=== PATIENT | male | born 1980 | race Caucasian/White ===

== ENCOUNTER 2017-04-24 11:02 | Inpatient (IN) | payer OTHER ==
[2017-04-24] MEDS ORDERED: ACETAMINOPHEN TAB 500 MG TAB PO STA (12:01)
[2017-04-24] MEDS ORDERED: MORPHINE SULFATE 4 MG/ML SYRINGE IVP STA (12:02)
[2017-04-24] MEDS ORDERED: ONDANSETRON 4 MG/2 ML VIAL IVP STA (12:06)
[2017-04-24 12:09] LABS: Glucose,Whole Blood 305 mg/dL (75-99)
--- NOTE | 2017-04-24 12:12 | ED ---
Lower Extremity Injury HPI <David Jackson - Last Filed: 04/24/17 13:15> - General Source: patient, RN notes reviewed Mode of arrival: wheelchair Limitations: no limitations <Alyson Morton - Last Filed: 04/24/17 16:21> - General Chief Complaint: Extremity Injury, Lower Stated Complaint: foot infection Time Seen by Provider: 04/24/17 11:35 - History of Present Illness Initial Comments: Patient is a 36-year-old male presents to the emergency room for evaluation of left toe swelling, pain and infection. Patient states that he noticed a small blister on the side of his toe about a year ago. Patient states over the past few days gotten worse. Patient states he was sent home 3 days ago for what he thought was heat exhaustion. Patient states today his left toe began bothering him more. Patient states having extreme swelling and draining from his left great toe. Patient denies any specific injury to his toe. Patient states he hasn't been to the doctor's in years. Patient states that he's been having on and off fevers past few days. Patient states he took Tylenol last night. Patient states he's been nauseous. Patient denies vomiting. Patient denies headache or dizziness. Patient states he is having 10 out of 10 pain in his left great toe. Patient denies history of diabetes or any other medical issues. Patient denies chest pain or shortness of breath. (Alyson Morton) - Related Data Home Medications Medication Instructions Recorded Confirmed Acetaminophen Tab [Tylenol Tab] 1,000 mg PO Q6HR PRN 04/24/17 04/24/17 Allergies Allergy/AdvReac Type Severity Reaction Status Date / Time No Known Allergies Allergy Verified 04/24/17 11:42 Review of Systems ROS Other: All systems not noted in ROS Statement are negative. <David Jackson - Last Filed: 04/24/17 13:15> ROS Other: All systems not noted in ROS Statement are negative. <Alyson Morton - Last Filed: 04/24/17 16:21> ROS Statement: Those systems with pertinent positive or pertinent negative responses have been documented in the HPI. Past Medical History Past Medical History: No Reported History History of Any Multi-Drug Resistant Organisms: None Reported Past Surgical History: No Surgical Hx Reported Past Psychological History: No Psychological Hx Reported Smoking Status: Never smoker Past Alcohol Use History: None Reported Past Drug Use History: None Reported - Past Family History Father Family Medical History: No Reported History Additional Family Medical History / Comment(s): Father does not go to the doctor. Mother Family Medical History: Diabetes Mellitus Additional Family Medical History / Comment(s): Diabetes runs on the mother's side. <Alyson Morton - Last Filed: 04/24/17 16:21> General Exam <David Jackson - Last Filed: 04/24/17 13:15> Limitations: no limitations General appearance: alert, in no apparent distress Head exam: Present: atraumatic, normocephalic, normal inspection Eye exam: Present: normal appearance ENT exam: Present: normal exam Neck exam: Present: normal inspection Respiratory exam: Present: normal lung sounds bilaterally. Absent: respiratory distress Cardiovascular Exam: Present: normal rhythm, tachycardia, normal heart sounds Left Foot/Toe exam: Present: full ROM, tenderness, erythema (Erythema and edema radiating from the left great toe onto the dorsal portion of the foot). Absent : normal inspection (Edematous left great toe, with drainage, blistering and a necrotic lesion on lateral portion of great toe) Neurovascular tendon exam: Absent: pulse deficit (2+ dorsal pedal pulses) Back exam: Present: normal inspection Neurological exam: Present: alert, oriented X3 Psychiatric exam: Present: normal affect, normal mood Skin exam: Present: warm, dry <Alyson Morton - Last Filed: 04/24/17 16:21> - General Exam Comments Initial Comments: Sitting in exam room, no distress. (Alyson Morton) Medical Decision Making - Lab Data Result diagrams: 04/24/17 12:01 04/24/17 12:01 <David Jackson - Last Filed: 04/24/17 13:15> - Lab Data Result diagrams: 04/24/17 12:01 04/24/17 12:01 - Radiology Data Radiology results: report reviewed, image reviewed <Alyson Morton - Last Filed: 04/24/17 16:21> - Medical Decision Making patient is a 36-year-old male since emergency room for evaluation of left great toe infection. There is gas formation noted on the x-ray of the foot. Elevated WBC. Case discussed with Dr. Jackson who also evaluated patient. Dr. Jackson discussed case with Dr. Martin who agreed to admit patient. Patient be consult with infectious disease and Ortho. Patient started on Vanco on Unasyn. (Alyson Morton) - Lab Data Lab Results 04/24/17 04/24/17 04/24/17 Range/Units 12:01 12:01 12:01 WBC 10.7 H (3.8-10.6) k/uL RBC 4.53 (4.30-5.90) m/uL Hgb 13.6 (13.0-17.5) gm/dL Hct 37.7 L (39.0-53.0) % MCV 83.3 (80.0-100.0) fL MCH 30.1 (25.0-35.0) pg MCHC 36.2 (31.0-37.0) g/dL RDW 12.5 (11.5-15.5) % Plt Count 234 (150-450) k/uL Neutrophils % 82 % Lymphocytes % 9 % Monocytes % 7 % Eosinophils % 0 % Basophils % 0 % Neutrophils # 8.8 H (1.3-7.7) k/uL Lymphocytes # 0.9 L (1.0-4.8) k/uL Monocytes # 0.7 (0-1.0) k/uL Eosinophils # 0.0 (0-0.7) k/uL Basophils # 0.0 (0-0.2) k/uL PT (9.0-12.0) sec INR (<1.1) APTT (22.0-30.0) sec Sodium 134 L (137-145) mmol/L Potassium 4.4 (3.5-5.1) mmol/L Chloride 97 L (98-107) mmol/L Carbon Dioxide 19 L (22-30) mmol/L Anion Gap 18 mmol/L BUN 15 (9-20) mg/dL Creatinine 0.70 (0.66-1.25) mg/dL Est GFR (MDRD) Af Amer >60 (>60 ml/min/1.73 sqM) Est GFR (MDRD) Non-Af >60 (>60 ml/min/1.73 sqM) Glucose 299 H (74-99) mg/dL POC Glucose (mg/dL) (75-99) mg/dL POC Glu Head Shipper ID Plasma Lactic Acid [place] 1.4 (0.7-2.0) mmol/L Calcium 9.0 (8.4-10.2) mg/dL Total Bilirubin 1.7 H (0.2-1.3) mg/dL AST 15 L (17-59) U/L ALT 39 (21-72) U/L Alkaline Phosphatase 81 (38-126) U/L Total Protein 7.1 (6.3-8.2) g/dL Albumin 3.8 (3.5-5.0) g/dL Urine Color Urine Appearance (Clear) Urine pH (5.0-8.0) Ur Specific [place] (1.001-1.035) Urine Protein (Negative) Urine Glucose (UA) (Negative) Urine Ketones (Negative) Urine Blood (Negative) Urine Nitrite (Negative) Urine Bilirubin (Negative) Urine Urobilinogen (<2.0) mg/dL Ur Leukocyte Esterase (Negative) Urine RBC (0-5) /hpf Urine WBC (0-5) /hpf Urine Mucus (None) /hpf 04/24/17 04/24/17 04/24/17 Range/Units 12:01 12:08 12:35 WBC (3.8-10.6) k/uL RBC (4.30-5.90) m/uL Hgb (13.0-17.5) gm/dL Hct (39.0-53.0) % MCV (80.0-100.0) fL MCH (25.0-35.0) pg MCHC (31.0-37.0) g/dL RDW (11.5-15.5) % Plt Count (150-450) k/uL Neutrophils % % Lymphocytes % % Monocytes % % Eosinophils % % Basophils % % Neutrophils # (1.3-7.7) k/uL Lymphocytes # (1.0-4.8) k/uL Monocytes # (0-1.0) k/uL Eosinophils # (0-0.7) k/uL Basophils # (0-0.2) k/uL PT 11.3 (9.0-12.0) sec INR 1.1 (<1.1) APTT 24.9 (22.0-30.0) sec Sodium (137-145) mmol/L Potassium (3.5-5.1) mmol/L Chloride (98-107) mmol/L Carbon Dioxide (22-30) mmol/L Anion Gap mmol/L BUN (9-20) mg/dL Creatinine (0.66-1.25) mg/dL Est GFR (MDRD) Af Amer (>60 ml/min/1.73 sqM) Est GFR (MDRD) Non-Af (>60 ml/min/1.73 sqM) Glucose (74-99) mg/dL POC Glucose (mg/dL) 305 H (75-99) mg/dL POC Glu Head Shipper ID Gladis Rao Plasma Lactic Acid [place] (0.7-2.0) mmol/L Calcium (8.4-10.2) mg/dL Total Bilirubin (0.2-1.3) mg/dL AST (17-59) U/L ALT (21-72) U/L Alkaline Phosphatase (38-126) U/L Total Protein (6.3-8.2) g/dL Albumin (3.5-5.0) g/dL Urine Color Yellow Urine Appearance Clear (Clear) Urine pH 5.0 (5.0-8.0) Ur Specific [place] 1.027 (1.001-1.035) Urine Protein 1+ H (Negative) Urine Glucose (UA) 4+ H (Negative) Urine Ketones 4+ H (Negative) Urine Blood Moderate H (Negative) Urine Nitrite Negative (Negative) Urine Bilirubin Negative (Negative) Urine Urobilinogen <2.0 (<2.0) mg/dL Ur Leukocyte Esterase Negative (Negative) Urine RBC 1 (0-5) /hpf Urine WBC 1 (0-5) /hpf Urine Mucus Rare H (None) /hpf Disposition <Dvaid Jackson - Last Filed: 04/24/17 13:15> Decision Date: 04/24/17 <Alyson Morton - Last Filed: 04/24/17 16:21> Clinical Impression: Infection of toe, New onset type 2 diabetes mellitus Disposition: ADMITTED IP TO THIS [facility] Condition: Stable
[2017-04-24 12:27] LABS: Basophils % (A) 0 %; CH 29.1; Eosinophils % (A) 0 %; HCT 37.7 % (39.0-53.0); HDW 3.11; HGB 13.6 gm/dL (13.0-17.5); Luc # (Auto) 0.26; Luc % (Auto) 2; Lymphocytes # (A) 0.9 k/uL (1.0-4.8); Lymphocytes % (A) 9 %; MCH 30.1 pg (25.0-35.0); MCHC 36.2 g/dL (31.0-37.0); MCV 83.3 fL (80.0-100.0); Mean Platelet Volume 7.3; Monocytes # (A) 0.7 k/uL (0-1.0); Monocytes % (A) 7 %; Neutrophils # (A) 8.8 k/uL (1.3-7.7); Neutrophils % (A) 82 %; RBC 4.53 m/uL (4.30-5.90); RDW 12.5 % (11.5-15.5); WBC 10.7 k/uL (3.8-10.6); WBC (Perox) 10.45
[2017-04-24 12:35] LABS: ALT 39 U/L (21-72); AST 15 U/L (17-59); Alkaline Phosphatase 81 U/L (38-126); Anion Gap 18 mmol/L; Blood Urea Nitrogen 15 mg/dL (9-20); Carbon Dioxide 19 mmol/L (22-30); Chloride 97 mmol/L (98-107); Glucose 299 mg/dL (74-99); Non-African American GFR(MDRD) >60 (>60 ml/min/1.73 sqM); Potassium 4.4 mmol/L (3.5-5.1); Sodium 134 mmol/L (137-145); Total Bilirubin 1.7 mg/dL (0.2-1.3); Total Protein 7.1 g/dL (6.3-8.2)
[2017-04-24 12:39] LABS: INR 1.1 (<1.1); Prothrombin Time 11.3 sec (9.0-12.0)
[2017-04-24] MEDS: SODIUM CHLORIDE 0.9% 500 ML IV SCH ×3 (12:43→15:02)
[2017-04-24] MEDS ORDERED: IV VANCOMYCIN PER PHARMACY 1 EACH MISC MISCELLANE PRN (12:51)
[2017-04-24] MEDS ORDERED: AMPICILLIN-SULBACTAM 3 GM in SODIUM CHLORIDE 0.9% 100 ML IVPB STA (12:52)
[2017-04-24] MEDS ORDERED: VANCOMYCIN 2,500 MG in SODIUM CHLORIDE 0.9% 500 ML IVPB STA (12:55)
[2017-04-24 12:56] LABS: Partial Thromboplastin Time 24.9 sec (22.0-30.0)
--- NOTE | 2017-04-24 12:58 | XR ---
EXAMINATION TYPE: XR foot complete LT DATE OF EXAM: 04/24/2017 COMPARISON: NONE HISTORY: 36-year-old male pain and swelling, great toe infection. TECHNIQUE: 3 views FINDINGS: Marked soft tissue swelling of the great toe. There is soft tissue gas present within the great toe e xtending to the first metatarsal head level. No underlying osseous erosions. No acute fracture, sublu xation, or dislocation identified. IMPRESSION: Marked soft tissue swelling as well as soft tissue gas within the great toe. Air bubbles extend to th e level of the first metatarsal head. Findings suggest severe infection with gas-forming organism. No underlying acute osseous abnormality seen.
[2017-04-24 13:05] LABS: Appearance,Urine Clear (Clear); Bilirubin,Urine Negative (Negative); Glucose,Urine (UA) 4+ (Negative); Leukocyte Esterase,Urine Negative (Negative); Mucus,Urine Rare /hpf; Nitrite,Urine Negative (Negative); Particle Count 2079; Protein,Urine 1+ (Negative); RBC,Urine 1 /hpf (0-5); Specific Gravity,Urine 1.027 (1.001-1.035); UA Billing (MACRO vs. MICRO) MICRO; Urobilinogen,Urine <2.0 mg/dL (<2.0); WBC,Urine 1 /hpf (0-5)
[2017-04-24] MEDS ORDERED: IBUPROFEN 400 MG TAB PO PRN (13:14)
[2017-04-24] MEDS ORDERED: NALOXONE 0.4 MG/ML 1 ML VIAL IV PRN (13:14)
[2017-04-24] MEDS ORDERED: HYDROcodone/APAP 5-325MG 1 EACH TAB PO PRN (13:14)
[2017-04-24] MEDS ORDERED: KETOROLAC 30 MG/ML 1 ML VIAL IVP PRN (13:14)
[2017-04-24] MEDS ORDERED: ACETAMINOPHEN TAB 500 MG TAB PO PRN (13:14)
[2017-04-24 13:34] LABS: Ketones,Urine 4+ (Negative)
[2017-04-24] MEDS: SODIUM CHLORIDE 0.9% 1,000 ML IV SCH ×2 (15:00→15:01)
--- NOTE | 2017-04-24 16:18 | P.CNOR ---
History of Present Illness - HPI Consult date: 04/24/17 History of present illness: This is a pleasant 36-year-old male admitted for cellulitis of the left great toe and new onset diabetes. Patient states he has noticed a blister to the left great toe for over a year. Patient attributes this to his work boots. Patient has not noticed any pain associated with the blister. Patient states since Thursday he has been feeling feverish and weak. Patient states he had a measured fever of approximately 101 yesterday. Patient states he started noticing increasing erythema and swelling to the left great toe over the last few days. Patient states he has tried popping the blister himself with a needle. Patient states he always has decreased sensation to the left great toe. Patient states he was unaware that he was diabetic. Patient has been able to ambulate. Patient denies any history of MRSA. Patient also admits to decreased appetite over the last day. Patient denies any abdominal pain, nausea /vomiting, headache or pain. Review of Systems See HPI. Past Medical History Past Medical History: No Reported History History of Any Multi-Drug Resistant Organisms: None Reported Past Surgical History: No Surgical Hx Reported Additional Past Anesthesia/Blood Transfusion Reaction / Comm: Pt has never had surgery. Smoking Status: Former smoker - Past Family History Father Family Medical History: No Reported History Additional Family Medical History / Comment(s): Father does not go to the doctor. Mother Family Medical History: Diabetes Mellitus Additional Family Medical History / Comment(s): Diabetes runs on the mother's side. Medications and Allergies Home Medications Medication Instructions Recorded Confirmed Type Acetaminophen Tab [Tylenol Tab] 1,000 mg PO Q6HR PRN 04/24/17 04/24/17 History Allergies Allergy/AdvReac Type Severity Reaction Status Date / Time No Known Allergies Allergy Verified 04/24/17 11:42 Physical Examination On inspection there is significant swelling to the left great toe and left foot. There are 2 areas of necrotic tissue to the anteromedial and posterior medial aspects of the left great toe in multiple areas with blistering and drainage. There is skin breakdown in the webspace between the first and second toes. There is surrounding erythema extending to the mid foot. There is no tenderness to palpation. Patient has significantly decreased sensation to the left great toe especially when compared with the second through fifth toes. The tip of the left great toe blanches. Dorsalis pedis pulses 2+. Patient is able to move the toes of the left foot. Patient has full ankle motion. Results X-rays are reviewed showing gas formation in the soft tissue of the left great toe. No apparent fracture or dislocation. - Labs Labs: Abnormal Lab Results - Last 24 Hours (Table) 04/24/17 04/24/17 04/24/17 Range/Units 12:01 12:01 12:08 WBC 10.7 H (3.8-10.6) k/uL Hct 37.7 L (39.0-53.0) % Neutrophils # 8.8 H (1.3-7.7) k/uL Lymphocytes # 0.9 L (1.0-4.8) k/uL Sodium 134 L (137-145) mmol/L Chloride 97 L (98-107) mmol/L Carbon Dioxide 19 L (22-30) mmol/L Glucose 299 H (74-99) mg/dL POC Glucose (mg/dL) 305 H (75-99) mg/dL Total Bilirubin 1.7 H (0.2-1.3) mg/dL AST 15 L (17-59) U/L Urine Protein (Negative) Urine Glucose (UA) (Negative) Urine Ketones (Negative) Urine Blood (Negative) Urine Mucus (None) /hpf 04/24/17 Range/Units 12:35 WBC (3.8-10.6) k/uL Hct (39.0-53.0) % Neutrophils # (1.3-7.7) k/uL Lymphocytes # (1.0-4.8) k/uL Sodium (137-145) mmol/L Chloride (98-107) mmol/L Carbon Dioxide (22-30) mmol/L Glucose (74-99) mg/dL POC Glucose (mg/dL) (75-99) mg/dL Total Bilirubin (0.2-1.3) mg/dL AST (17-59) U/L Urine Protein 1+ H (Negative) Urine Glucose (UA) 4+ H (Negative) Urine Ketones 4+ H (Negative) Urine Blood Moderate H (Negative) Urine Mucus Rare H (None) /hpf H & H 04/24/17 Range/Units 12:01 Hgb 13.6 (13.0-17.5) gm/dL Hct 37.7 L (39.0-53.0) % Coagulation 04/24/17 Range/Units 12:01 INR 1.1 (<1.1) Result Diagrams: 04/24/17 12:01 04/24/17 12:01 Assessment and Plan (1) Cellulitis Status: Acute (2) Infection of toe Status: Acute Plan: #1. Consult to vascular regarding possible amputation. #2. Continue IV antibiotics per infectious disease. #3. Further recommendations pending vascular consultation. #4. Will follow the patient closely.
[2017-04-24 17:03] LABS: Glucose,Whole Blood 247 mg/dL (75-99)
--- NOTE | 2017-04-24 18:03 | CONS ---
DATE OF CONSULTATION: 04/24/2017 REASON FOR CONSULTATION: Left big toe infection. HISTORY OF PRESENT ILLNESS: The patient is a 36 year old male who apparently did have a blister on the plantar aspect of his left big toe for more than a year now where the patient had ( ) at home. However, the last few days, the patient started having more swelling and redness of his big toe. The patient did have significant ( ) in his toes, so denies significant pain. They did become more swollen and started draining from his left great toe with no history of any trauma. The patient apparently did have a fever at home of 101 degrees with 100.8 on presentation to the ER. The patient did have elevated white count 10.7 and his sugar was elevated at 299 and the patient did not know that he was diabetic. The patient did have x-rays of his foot which is suggestive of a mild soft tissue swelling as well as soft tissue ( ) within the great toe, air bubble extending to the level of the first metatarsal head, ( ) suggests severe infection with ( ) organism. The patient has been started on Vancomycin and ID was consulted for further recommendations regarding antibiotic therapy. REVIEW OF SYSTEMS Constitutional: Positive for weakness along with fever. EYES: No complaint. ENT: No complaint. Respiratory: No complaint. Cardiovascular: No complaint. Genitourinary: No complaint. Gastrointestinal: No complaint. Musculoskeletal: As per HPI. Integumentary: As per HPI. Psychological: No complaint. Endocrine: No complaint. Neurological: No complaint. Past medical history significant for no major illness. Past surgical history: No major surgeries. SOCIAL HISTORY: No history of smoking, drinking or drug use. FAMILY HISTORY: No pertinent findings were noticed. ALLERGIES: No known drug allergies. Medications currently include the patient is on: 1. Tylenol. 2. [place]. 3. Motrin. 4. Humalog. 5. Toradol. 6. Morphine sulfate. 7. Narcan. 8. Zofran. 9. Vancomycin. On examination, blood pressure is 121/56 with a pulse of 100. Temperature 97.8. T-Max is 101. He is 96% on room air. General description is a middle aged male lying in bed in no distress. No tachypnea or accessory muscles of respiration use. HEENT: Examination shows no pallor or scleral icterus. Oral mucous membranes moist. NECK: Trachea is central. No thyromegaly. LUNGS: Unlabored breathing. Clear to auscultation anteriorly. No wheeze or crackles. HEART: S1, S2 regular rate and rhythm. ABDOMEN: Soft, no tenderness. No guarding or rigidity. EXTREMITIES: No edema of the feet. Examination of the left foot the big toe is significantly swollen and red. No blackish discoloration was noticed. There is some drainage. NEUROLOGICALLY: The patient is awake, alert and oriented times three. Mood and affect normal. LABS: Hemoglobin 13.6, white count 10.7 with a BUN 15, creatinine 0.70. The patient did have blood cultures obtained which are currently pending. DIAGNOSTIC IMPRESSION AND PLAN: Patient with sepsis in a patient who did have fever of 101 degrees and did have tachycardia with slightly elevated white count , ( ) diabetic foot infection in a patient with elevated blood sugar likely newly diagnosed diabetes, the patient was unaware with evidence of ( ) pathogen and the likely polymicrobial infection including both gram positive and gram negative. PLAN: 1. Vancomycin will be continued. Will add Zosyn 3.375 gm IV piggyback every eight hours. 2. Await surgical debridement for which both vascular surgery and Ortho on the case. 3. Depending on his clinical condition as well as cultures, we will adjust the antibiotics further. Thank you for this consultation. We will follow this patient along with you. Family was present at the bedside. All their questions were answered. KINSEY
[2017-04-24] MEDS: PIPERACILLIN-TAZOBACTAM 3.375 GM in DEXTROSE/WATER 1 50ML.BAG IVPB SCH (18:09)
[2017-04-24] MEDS: INSULIN LISPRO (humaLOG) 300 UNIT/3 ML VIAL SQ SCH ×2 (18:09→22:02)
[2017-04-24 20:51] LABS: Glucose,Whole Blood 282 mg/dL (75-99)
[2017-04-24 21:47] LABS: Hemoglobin A1C 13.8 % (4.2-6.1)
[2017-04-24] MEDS: VANCOMYCIN 2,250 MG in SODIUM CHLORIDE 0.9% 500 ML IVPB SCH (23:25)
[2017-04-25] MEDS: PIPERACILLIN-TAZOBACTAM 3.375 GM in DEXTROSE/WATER 1 50ML.BAG IVPB SCH ×3 (02:53→17:51)
[2017-04-25 07:18] LABS: Glucose,Whole Blood 276 mg/dL (75-99)
[2017-04-25] MEDS: ENOXAPARIN 40 MG/0.4 ML SYRINGE SQ SCH (07:28)
[2017-04-25] MEDS: VANCOMYCIN 2,250 MG in SODIUM CHLORIDE 0.9% 500 ML IVPB SCH ×3 (07:32→22:41)
--- NOTE | 2017-04-25 07:33 | P.GSCN ---
History of Present Illness History of present illness: 36 and fell, patient came to the [facility] with history of left big toe blister formation or cellulitis patient has developed wet gangrene in the left big toe seen by the orthopedic and also by the infectious disease there is a skin necrosis noted on the dorsal aspect of the left big toe there is an open wound on the plantar aspect of the left big toe with draining pus there is marked redness and swelling noted of the left foot and dorsal aspect of the foot and IV antibiotic also has a low-grade fever option were discussed with the patient because of the skin necrosis on the dorsal suspect the foot and to the large open wound ulcer on the plantar aspect the foot patient needs left big toe amputation Medical history history of diabetes no history of hypertension coronary artery disease Personal history no known ALLERGIES Neck examination neck is supple no bruit appreciated Chest clear first and second sound normal Abdomen soft nontender Vascular examination brachial radial and femoral pulses are present dorsal pedis is palpable patient has a left big toe and wet gangrene Plan is amputation of the left big toe wound healing nontender infection has been discussed with the patient they understand Past Medical History Past Medical History: No Reported History History of Any Multi-Drug Resistant Organisms: None Reported Past Surgical History: No Surgical Hx Reported Additional Past Anesthesia/Blood Transfusion Reaction / Comm: Pt has never had surgery. Past Psychological History: No Psychological Hx Reported Smoking Status: Never smoker Past Alcohol Use History: None Reported Past Drug Use History: None Reported - Past Family History Father Family Medical History: No Reported History Additional Family Medical History / Comment(s): Father does not go to the doctor. Mother Family Medical History: Diabetes Mellitus Additional Family Medical History / Comment(s): Diabetes runs on the mother's side. Medications and Allergies Home Medications Medication Instructions Recorded Confirmed Type Acetaminophen Tab [Tylenol Tab] 1,000 mg PO Q6HR PRN 04/24/17 04/24/17 History Allergies Allergy/AdvReac Type Severity Reaction Status Date / Time No Known Allergies Allergy Verified 04/24/17 11:42 Surgical - Exam Vital Signs Temp Pulse Resp BP Pulse Ox 100.8 F H 115 H 18 126/74 98 04/24/17 11:16 04/24/17 11:16 04/24/17 11:16 04/24/17 11:16 04/24/17 11:16 Results - Labs 04/24/17 12:01 04/24/17 12:01 Abnormal Lab Results - Last 24 Hours (Table) 04/24/17 04/24/17 04/24/17 Range/Units 12:01 12:01 12:01 WBC 10.7 H (3.8-10.6) k/uL Hct 37.7 L (39.0-53.0) % Neutrophils # 8.8 H (1.3-7.7) k/uL Lymphocytes # 0.9 L (1.0-4.8) k/uL Sodium 134 L (137-145) mmol/L Chloride 97 L (98-107) mmol/L Carbon Dioxide 19 L (22-30) mmol/L Glucose 299 H (74-99) mg/dL POC Glucose (mg/dL) (75-99) mg/dL Hemoglobin A1c 13.8 H (4.2-6.1) % Total Bilirubin 1.7 H (0.2-1.3) mg/dL AST 15 L (17-59) U/L Urine Protein (Negative) Urine Glucose (UA) (Negative) Urine Ketones (Negative) Urine Blood (Negative) Urine Mucus (None) /hpf 04/24/17 04/24/17 04/24/17 Range/Units 12:08 12:35 16:59 WBC (3.8-10.6) k/uL Hct (39.0-53.0) % Neutrophils # (1.3-7.7) k/uL Lymphocytes # (1.0-4.8) k/uL Sodium (137-145) mmol/L Chloride (98-107) mmol/L Carbon Dioxide (22-30) mmol/L Glucose (74-99) mg/dL POC Glucose (mg/dL) 305 H 247 H (75-99) mg/dL Hemoglobin A1c (4.2-6.1) % Total Bilirubin (0.2-1.3) mg/dL AST (17-59) U/L Urine Protein 1+ H (Negative) Urine Glucose (UA) 4+ H (Negative) Urine Ketones 4+ H (Negative) Urine Blood Moderate H (Negative) Urine Mucus Rare H (None) /hpf 04/24/17 04/25/17 Range/Units 20:48 07:15 WBC (3.8-10.6) k/uL Hct (39.0-53.0) % Neutrophils # (1.3-7.7) k/uL Lymphocytes # (1.0-4.8) k/uL Sodium (137-145) mmol/L Chloride (98-107) mmol/L Carbon Dioxide (22-30) mmol/L Glucose (74-99) mg/dL POC Glucose (mg/dL) 282 H 276 H (75-99) mg/dL Hemoglobin A1c (4.2-6.1) % Total Bilirubin (0.2-1.3) mg/dL AST (17-59) U/L Urine Protein (Negative) Urine Glucose (UA) (Negative) Urine Ketones (Negative) Urine Blood (Negative) Urine Mucus (None) /hpf Microbiology - Last 24 Hours (Table) 04/24/17 12:10 Gram Stain - Preliminary Toe - Right First Wound Culture - Preliminary 04/24/17 12:35 Urine Culture - Preliminary Urine,Voided Diabetes panel 04/24/17 04/24/17 Range/Units 12:01 12:01 Sodium 134 L (137-145) mmol/L Potassium 4.4 (3.5-5.1) mmol/L Chloride 97 L (98-107) mmol/L Carbon Dioxide 19 L (22-30) mmol/L BUN 15 (9-20) mg/dL Creatinine 0.70 (0.66-1.25) mg/dL Glucose 299 H (74-99) mg/dL Hemoglobin A1c 13.8 H (4.2-6.1) % Calcium 9.0 (8.4-10.2) mg/dL AST 15 L (17-59) U/L ALT 39 (21-72) U/L Alkaline Phosphatase 81 (38-126) U/L Total Protein 7.1 (6.3-8.2) g/dL Albumin 3.8 (3.5-5.0) g/dL Calcium panel 04/24/17 Range/Units 12:01 Calcium 9.0 (8.4-10.2) mg/dL Albumin 3.8 (3.5-5.0) g/dL Pituitary panel 04/24/17 Range/Units 12:01 Sodium 134 L (137-145) mmol/L Potassium 4.4 (3.5-5.1) mmol/L Chloride 97 L (98-107) mmol/L Carbon Dioxide 19 L (22-30) mmol/L BUN 15 (9-20) mg/dL Creatinine 0.70 (0.66-1.25) mg/dL Glucose 299 H (74-99) mg/dL Calcium 9.0 (8.4-10.2) mg/dL Adrenal panel 04/24/17 Range/Units 12:01 Sodium 134 L (137-145) mmol/L Potassium 4.4 (3.5-5.1) mmol/L Chloride 97 L (98-107) mmol/L Carbon Dioxide 19 L (22-30) mmol/L BUN 15 (9-20) mg/dL Creatinine 0.70 (0.66-1.25) mg/dL Glucose 299 H (74-99) mg/dL Calcium 9.0 (8.4-10.2) mg/dL Total Bilirubin 1.7 H (0.2-1.3) mg/dL AST 15 L (17-59) U/L ALT 39 (21-72) U/L Alkaline Phosphatase 81 (38-126) U/L Total Protein 7.1 (6.3-8.2) g/dL Albumin 3.8 (3.5-5.0) g/dL
[2017-04-25 08:40] LABS: Basophils % (A) 0 %; CH 28.8; CHCM 33.7; Eosinophils # (A) 0.1 k/uL (0-0.7); Eosinophils % (A) 1 %; HCT 36.6 % (39.0-53.0); HDW 3.06; HGB 12.2 gm/dL (13.0-17.5); Luc # (Auto) 0.41; Luc % (Auto) 4; Lymphocytes # (A) 1.5 k/uL (1.0-4.8); Lymphocytes % (A) 14 %; MCH 28.5 pg (25.0-35.0); MCHC 33.2 g/dL (31.0-37.0); MCV 85.8 fL (80.0-100.0); Mean Platelet Volume 7.1; Monocytes # (A) 0.6 k/uL (0-1.0); Monocytes % (A) 6 %; Neutrophils # (A) 7.9 k/uL (1.3-7.7); Neutrophils % (A) 75 %; RBC 4.27 m/uL (4.30-5.90); RDW 12.6 % (11.5-15.5); WBC 10.5 k/uL (3.8-10.6); WBC (Perox) 10.62
[2017-04-25 08:47] LABS: ALT 29 U/L (21-72); AST 17 U/L (17-59); Alkaline Phosphatase 79 U/L (38-126); Anion Gap 13 mmol/L; Blood Urea Nitrogen 14 mg/dL (9-20); Calcium 8.3 mg/dL (8.4-10.2); Carbon Dioxide 23 mmol/L (22-30); Chloride 100 mmol/L (98-107); Glucose 262 mg/dL (74-99); Non-African American GFR(MDRD) >60 (>60 ml/min/1.73 sqM); Potassium 4.4 mmol/L (3.5-5.1); Sodium 136 mmol/L (137-145); Total Bilirubin 1.5 mg/dL (0.2-1.3); Total Protein 6.4 g/dL (6.3-8.2)
[2017-04-25] MEDS: INSULIN LISPRO (humaLOG) 300 UNIT/3 ML VIAL SQ SCH ×4 (08:51→21:10)
[2017-04-25 09:52] VITALS: BMI 38.0
[2017-04-25] MEDS: SODIUM CHLORIDE 0.9% 1,000 ML IV SCH ×2 (10:35→20:27)
[2017-04-25 11:45] LABS: Glucose,Whole Blood 242 mg/dL (75-99)
[2017-04-25] MEDS ORDERED: IV FLUID CONTINUATION 1,000 ML IV ONE (11:52)
[2017-04-25] MEDS ORDERED: KETOROLAC 30 MG/ML 1 ML VIAL ONE (12:36)
[2017-04-25] MEDS ORDERED: PROPOFOL 10 MG/ML 20 ML VIAL IV ONE (12:36)
[2017-04-25] MEDS ORDERED: fentaNYL (PF) 50 MCG/ML 2 ML AMP ONE (12:36)
[2017-04-25] MEDS ORDERED: MIDAZOLAM 2 MG/2 ML VIAL ONE (12:36)
[2017-04-25] MEDS ORDERED: ONDANSETRON 4 MG/2 ML VIAL ONE (12:36)
[2017-04-25] MEDS ORDERED: LIDOCAINE 1% INJ 10MG/ML (20 ML MDV) ONE (12:36)
[2017-04-25] MEDS ORDERED: METOCLOPRAMIDE 5 MG/ML 2 ML VIAL IVP PRN (12:56)
[2017-04-25] MEDS ORDERED: HYDROmorphone 1 MG/ML 1 ML SYRINGE IVP PRN (12:56)
[2017-04-25 13:56] LABS: Glucose,Whole Blood 227 mg/dL (75-99)
[2017-04-25] MEDS: LACTATED RINGERS 1,000 ML IV SCH (14:45)
--- NOTE | 2017-04-25 15:22 | OP ---
PREOPERATIVE DIAGNOSIS: Wet gangrene of the left foot, big toe involving the plantar aspect and dorsal aspect of the big toe and dorsal aspect of the foot. OPERATION: Amputation of the left foot, big toe. DESCRIPTION OF PROCEDURE: This patient has history of diabetes. He has a wet gangrene of the left foot with open sore on the plantar aspect of the left big toe and marked redness on the dorsal aspect of the foot. Patient is on IV antibiotics. Patient was brought to the operating room. Left foot was prepped and draped in a sterile manner. Under general anesthesia, a circular incision was made at the base of the left big toe. The skin was heavily infected and was inflamed. Went through skin and fascia on the plantar and dorsal aspect of the foot. Tendons were divided and there was some ( ) vessel which was ligated with 3-0 Prolene and this was involving the big toe and plantar aspect of the foot. We had to remove the head of the metatarsal bone using electric saw and after that the specimen was removed and wound was copiously irrigated with ( ) and saline. Fascia was approximated with 0 Vicryl with interrupted suture. The skin was left open because patient had infected gangrene and we will treat with local would care and VAC therapy and patient will be on long-term antibiotic. Patient's hemostasis was well controlled and transferred to the recovery room in satisfactory position. KINSEY
[2017-04-25 17:22] LABS: Glucose,Whole Blood 239 mg/dL (75-99)
[2017-04-25] MEDS: MORPHINE SULFATE 4 MG/ML SYRINGE IV PRN (21:14)
[2017-04-25 21:16] LABS: Glucose,Whole Blood 269 mg/dL (75-99)
[2017-04-26] MEDS: PIPERACILLIN-TAZOBACTAM 3.375 GM in DEXTROSE/WATER 1 50ML.BAG IVPB SCH ×3 (02:16→19:29)
[2017-04-26] MEDS: SODIUM CHLORIDE 0.9% 1,000 ML IV SCH ×2 (05:26→16:46)
[2017-04-26] MEDS ORDERED: VANCOMYCIN TROUGH DUE 1 EACH MISC MISCELLANE ONE (06:00)
[2017-04-26] MEDS: MORPHINE SULFATE 4 MG/ML SYRINGE IV PRN (06:06)
[2017-04-26 07:29] LABS: Glucose,Whole Blood 289 mg/dL (75-99)
[2017-04-26] MEDS: ATORVASTATIN 40 MG TAB PO SCH (08:00)
[2017-04-26] MEDS: VANCOMYCIN 2,250 MG in SODIUM CHLORIDE 0.9% 500 ML IVPB SCH ×3 (08:00→23:13)
[2017-04-26] MEDS: ASPIRIN 81 MG CHEW PO SCH (08:00)
[2017-04-26] MEDS: ENOXAPARIN 40 MG/0.4 ML SYRINGE SQ SCH (08:00)
[2017-04-26] MEDS: LISINOPRIL 2.5 MG TAB PO SCH (08:00)
[2017-04-26] MEDS: INSULIN LISPRO (humaLOG) 300 UNIT/3 ML VIAL SQ SCH ×4 (08:01→20:54)
[2017-04-26 08:28] LABS: Basophils % (A) 0 %; CH 28.9; Eosinophils # (A) 0.1 k/uL (0-0.7); Eosinophils % (A) 2 %; HCT 32.6 % (39.0-53.0); HDW 3.03; HGB 10.8 gm/dL (13.0-17.5); Luc # (Auto) 0.32; Luc % (Auto) 4; Lymphocytes # (A) 1.4 k/uL (1.0-4.8); Lymphocytes % (A) 16 %; MCH 29.1 pg (25.0-35.0); MCHC 33.1 g/dL (31.0-37.0); Monocytes # (A) 0.7 k/uL (0-1.0); Monocytes % (A) 8 %; Neutrophils # (A) 6.4 k/uL (1.3-7.7); Neutrophils % (A) 71 %; RBC 3.71 m/uL (4.30-5.90); RDW 12.9 % (11.5-15.5); WBC 8.9 k/uL (3.8-10.6); WBC (Perox) 8.59
[2017-04-26 08:43] LABS: Anion Gap 12 mmol/L; Blood Urea Nitrogen 12 mg/dL (9-20); Calcium 8.1 mg/dL (8.4-10.2); Carbon Dioxide 23 mmol/L (22-30); Chloride 100 mmol/L (98-107); Cholesterol 102 mg/dL (<200); Glucose 266 mg/dL (74-99); HDL Cholesterol 20 mg/dL (40-60); Non-African American GFR(MDRD) >60 (>60 ml/min/1.73 sqM); Potassium 4.3 mmol/L (3.5-5.1); Sodium 135 mmol/L (137-145); Triglycerides 91 mg/dL (<150)
--- NOTE | 2017-04-26 08:56 | P.PN ---
Progress Note - Text t 36-year-old white male patient had a wet gangrene of the left big toe we did that amputation yesterday today we have changed her dressing we will use VAC therapy for tomorrow continue with IV antibiotic and local wound care a
--- NOTE | 2017-04-26 09:37 | HP ---
DATE OF ADMISSION: 04/24/17 PRESENTING COMPLAINT: Infection left big toe. HISTORY OF PRESENTING COMPLAINT: This is a very pleasant 36 [address] of [address] Altamirano. Does not really take any medications. For about a year has been having infection of the left big toe. Slowly has progressed. The patient has decreased sensation and it became wet gangrene when actually presented. Not much pain is present. I did come to see the patient twice earlier today but he had gone to the OR. REVIEW OF SYSTEMS: Constitutional: Tired. HEENT: None. Respiratory: None. Cardiovascular: None. Gastrointestinal: None. Genitourinary: None. Musculoskeletal: None. Dermatological: As above. Lymphatics: None. Psychiatric: None. Neurological: Numbness distally. PAST MEDICAL HISTORY: None. PAST SURGICAL: None. 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 Does not smoke or drink alcohol. FAMILY HISTORY: Reviewed, noncontributory to presentation. Home medications: None. ALLERGIES: None. On examination, vital signs on presentation, T-Max 101, pulse 106, respiratory rate 18, blood pressure 132/71. Pulse ox 97% on room air. GENERAL APPEARANCE: Obese, BMI 38. Lying in bed. Not in distress. EYES: Pupils equal. Conjunctivae normal. Oral cavity normal. NECK: JVD unable to assess. Mass not palpable. RESPIRATORY: Effort increased. LUNGS: Distant breath sounds. CARDIOVASCULAR: Heart sounds muffled. No edema. ABDOMEN: Soft, nontender. Liver and spleen not palpable. LYMPHATICS: No lymph nodes palpable in the neck and axilla. PSYCHIATRIC: Alert and oriented times three. Mood and affect normal. EXTREMITIES: The patient has a dressing over the left foot. INVESTIGATIONS: White count 10.5, hemoglobin 10.2. Potassium 4.4. Accu- Cheks noted. ASSESSMENT: 1. Left big toe wet gangrene secondary to uncontrolled diabetes and having peripheral neuropathy. 2. Obesity, BMI 38. 3. Diabetes mellitus Type 2, new diagnosis, uncontrolled. 4. Mild normocytic anemia, ( ) infection. 5. Sepsis on presentation due to infection of wet gangrene of the left big toe. PLAN: The patient is on IV Zosyn and Vancomycin. Taken to the OR. Amputation was carried out by Dr. Haro. We will put the patient on a small baby aspirin. Lipitor. Small dose of Prinivil for renal production. Care was discussed with the patient. Copy to Dr. Altamirano. [facility]
[2017-04-26] MEDS: COLLAGENASE 250 UNIT/GM OINTMENT 30 GM TUBE TOPICAL SCH (09:52)
[2017-04-26 11:57] LABS: Glucose,Whole Blood 250 mg/dL (75-99)
[2017-04-26] MEDS: LACTATED RINGERS 1,000 ML IV SCH (14:42)
[2017-04-26 17:26] LABS: Glucose,Whole Blood 256 mg/dL (75-99)
[2017-04-26] MEDS: metFORMIN 500 MG TAB PO SCH (17:40)
[2017-04-26 20:54] LABS: Glucose,Whole Blood 255 mg/dL (75-99)
[2017-04-26] MEDS ORDERED: LIDOCAINE 1% INJ 10MG/ML (20 ML MDV) ONE (21:24)
[2017-04-26] MEDS ORDERED: PROPOFOL 10 MG/ML 20 ML VIAL IV ONE (21:24)
[2017-04-26] MEDS ORDERED: KETOROLAC 30 MG/ML 1 ML VIAL ONE (21:24)
[2017-04-26] MEDS ORDERED: MIDAZOLAM 2 MG/2 ML VIAL ONE (21:24)
[2017-04-26] MEDS ORDERED: SUCCINYLCHOLINE CHLORIDE 100 MG/5 ML SYR IV ONE (21:24)
[2017-04-26] MEDS ORDERED: fentaNYL (PF) 50 MCG/ML 2 ML AMP ONE (21:24)
[2017-04-26] MEDS: CLINDAMYCIN 900 MG in DEXTROSE 5% IN WATER 50 ML IVPB SCH ×2 (23:44)
[2017-04-27] MEDS: SODIUM CHLORIDE 0.9% 1,000 ML IV SCH ×3 (00:26→20:39)
[2017-04-27] MEDS: ceFAZolin 2 GM in SODIUM CHLORIDE 0.9% 100 ML IVPB SCH ×4 (00:26→23:18)
--- NOTE | 2017-04-27 05:19 | PN ---
DATE OF SERVICE: 04/26/2017 PRESENTING COMPLAINT: Left big toe wet gangrene. INTERVAL HISTORY: This is a patient who is a newly diagnosed diabetic presented with wet gangrene of the left big toe, status post amputation by Dr. Haro. ( ) in the wound, which is controlled. Tolerating his diet. No nausea or vomiting. No fever. and friends at the bedside. Review of systems done for constitutional, cardiovascular, GI, pulmonary, musculoskeletal; relevant findings as above. Current medications are reviewed that include IV vancomycin and Zosyn. On examination, temperature 100.7, pulse 95, respirations 16, blood pressure 125 /74, pulse ox 92% on room air. GENERAL APPEARANCE: Lying in bed, comfortable. EYES: Pupils equal. Conjunctivae normal. NECK: JVD no raised. Mass not palpable. RESPIRATORY: Effort normal. LUNGS: Distant breath sounds. CARDIOVASCULAR: Heart sounds muffled. No edema. ABDOMEN: Soft, nontender. PSYCHIATRY: Alert and oriented x3. Mood and affect normal. EXTREMITIES: Left foot in a dressing. INVESTIGATIONS: White count 8.9, hemoglobin 10.8. Potassium 4.3. Accu-Cheks are noted. ASSESSMENT: 1. Left big toe wet gangrene from uncontrolled diabetes and peripheral neuropathy, status post amputation. 2. Diabetes mellitus type 2, new diagnosis with peripheral neuropathy. 3. Obesity, body mass index 38.0. 4. Acute blood loss anemia as expected from surgery. Hemoglobin dropped more than 2 units. PLAN: Continue current medication and treatment plan including antibiotics. Care was discussed with the patient's at the bedside. Discharge planning will be coordinated after decision from the surgery when it is stable. Patient' s medications explained to him. KINSEY
[2017-04-27 07:19] LABS: Glucose,Whole Blood 256 mg/dL (75-99)
[2017-04-27] MEDS: COLLAGENASE 250 UNIT/GM OINTMENT 30 GM TUBE TOPICAL SCH (07:37)
[2017-04-27] MEDS: ATORVASTATIN 40 MG TAB PO SCH (07:37)
[2017-04-27] MEDS: metFORMIN 500 MG TAB PO SCH ×2 (07:37→17:29)
[2017-04-27] MEDS: LISINOPRIL 2.5 MG TAB PO SCH (07:37)
[2017-04-27] MEDS: ENOXAPARIN 40 MG/0.4 ML SYRINGE SQ SCH (07:37)
[2017-04-27] MEDS: INSULIN LISPRO (humaLOG) 300 UNIT/3 ML VIAL SQ SCH ×4 (07:37→21:37)
[2017-04-27] MEDS: ASPIRIN 81 MG CHEW PO SCH (07:37)
[2017-04-27 08:20] LABS: Anion Gap 10 mmol/L; Blood Urea Nitrogen 10 mg/dL (9-20); Calcium 8.2 mg/dL (8.4-10.2); Carbon Dioxide 25 mmol/L (22-30); Chloride 102 mmol/L (98-107); Glucose 254 mg/dL (74-99); Non-African American GFR(MDRD) >60 (>60 ml/min/1.73 sqM); Potassium 4.3 mmol/L (3.5-5.1); Sodium 137 mmol/L (137-145)
[2017-04-27] MEDS: CLINDAMYCIN 900 MG in DEXTROSE 5% IN WATER 50 ML IVPB SCH ×4 (09:33→16:19)
--- NOTE | 2017-04-27 09:44 | PN ---
DATE OF SERVICE: 04/26/2017 Reason for followup is left diabetic foot infection. INTERVAL HISTORY: The patient is status post left big toe amputation by Dr. Haro yesterday. The patient tolerated the procedure. Overall pain to the left foot area is currently controlled. Denies significant chest pain, shortness of breath or cough. No abdominal pain or any diarrhea. On examination, blood pressure is 138/67 with a pulse of 86, temperature 98.8. He is 94% on room air. General description is a middle age male, lying in bed in no distress. RESPIRATORY SYSTEM: Unlabored breathing. Clear to auscultation anteriorly. HEART: S1 and S2, regular rate and rhythm. ABDOMEN: Soft, no tenderness. Left foot ( ) dressed up with some drainage on the dressing. LABS: Hemoglobin is 10.8, white count normal it is to 8.9 with a BUN of 12, creatinine 0.60. Wound culture with Staph aureus with MSSA and streptococcus agalactiae. DIAGNOSTIC IMPRESSION AND PLAN: Patient with a left big toe diabetic foot infection with streptococcus agalactiae and MSSA. Antibiotic will be adjusted to cefazolin 2 gram q.8 along with clindamycin. Discontinue vancomycin and Zosyn. Continue supportive care. MTDD
--- NOTE | 2017-04-27 12:11 | P.PN ---
Progress Note - Text 36-year-old white male, post right big toe ray amputation for infected gangrene of the right big toe wound is healing no discharge noted this point we noted some bleeding which was stopped by pressure dressing continue with local wound care and we will arrange for VAC therapy when he goes home patient will follow with me in the wound clinic
[2017-04-27 12:21] LABS: Glucose,Whole Blood 276 mg/dL (75-99)
[2017-04-27] MEDS: LACTATED RINGERS 1,000 ML IV SCH (13:09)
[2017-04-27] MEDS ORDERED: COLLAGENASE 250 UNIT/GM OINTMENT 30 GM TUBE TOPICAL SCH (14:30)
[2017-04-27 17:28] LABS: Glucose,Whole Blood 263 mg/dL (75-99)
--- NOTE | 2017-04-27 18:55 | P.PN ---
Subjective Date of service 04/27/2017. Progress note being dictated for Dr. Gordon. Interval history: This is a 36-year-old gentleman admitted with left great toe, Streptococcus agalactia and MSSA , uncontrolled diabetes-newly diagnosed, and multiple other medical issues. Status post amputation. Currently no wound VAC recommended, receiving wound care with Santyl dressings, ceftazolin, clindamycin as per infectious disease. Scheduled for PICC line tomorrow. Remains nonweightbearing. Blood sugars remain uncontrolled in the mid 250s. Afebrile, T-max 99.8. Objective - Vital Signs Vital signs: Vital Signs Temp 97.4 F L 04/27/17 15:00 Pulse 98 04/27/17 15:00 Resp 18 04/27/17 15:00 BP 123/70 04/27/17 15:00 Pulse Ox 96 04/27/17 15:00 Intake & Output 04/26/17 04/27/17 04/27/17 18:59 06:59 18:59 Intake Total 710 200 Output Total 625 Balance 710 -425 Intake: Intake, IV Titration 710 Amount Lactated Ringers 1,000 ml 160 @ 20 mls/hr IV .Q24H [facility] Rx#:[id number] Piperacillin-Tazobactam 3 50 .375 gm In Dextrose/Water 1 50ml.bag @ 12.5 mls/hr IVPB Q8H [facility] Rx#: [id number] Vancomycin 2,250 mg In 500 Sodium Chloride 0.9% 500 ml @ 167 mls/hr IVPB Q8H [facility] Rx#:[id number] Oral 200 Output: Urine 625 Other: Voiding Method Urinal # Voids 1 3 # Bowel Movements 1 - Exam PHYSICAL EXAM: VITAL SIGNS: [As above] GENERAL: [Sitting up in bed, no acute distress] HEENT: [Pupils equal conjunctiva normal. Oral mucosa moist NECK: [Supple, no JVD] RESPIRATORY EFFORT:[ Normal] LUNGS: [Clear to auscultation, no wheezes rhonchi or crackles] CARDIOVASCULAR[ regular S1 and S2, no murmurs rubs or gallops,] GI: [Abdomen soft, nontender, positive bowel sounds.] PSYCH: [Alert and oriented -3, mood and affect normal.] SKIN: [Left foot dressing clean dry and intact] NEURO: No focal deficits Microbiology 04/24/17 12:01 Blood Blood Culture - Preliminary No Growth after 72 hours 04/24/17 12:10 Toe - Right First Gram Stain - Final 04/24/17 12:10 Toe - Right First Wound Culture - Final Staphylococcus aureus Strep agalactiae - (group b) 04/24/17 12:35 Urine,Voided Urine Culture - Final - Labs CBC & Chem 7: 04/26/17 07:16 04/27/17 07:40 Labs: Abnormal Lab Results - Last 24 Hours (Table) 04/26/17 04/27/17 04/27/17 Range/Units 20:46 07:12 07:40 Creatinine 0.54 L (0.66-1.25) mg/dL Glucose 254 H (74-99) mg/dL POC Glucose (mg/dL) 255 H 256 H (75-99) mg/dL Calcium 8.2 L (8.4-10.2) mg/dL 04/27/17 04/27/17 Range/Units 12:17 17:25 Creatinine (0.66-1.25) mg/dL Glucose (74-99) mg/dL POC Glucose (mg/dL) 276 H 263 H (75-99) mg/dL Calcium (8.4-10.2) mg/dL Microbiology - Last 24 Hours (Table) 04/24/17 12:01 Blood Culture - Preliminary Blood No Growth after 72 hours 04/24/17 12:10 Gram Stain - Final Toe - Right First Wound Culture - Final Staphylococcus aureus Strep agalactiae - (group b) Assessment and Plan Plan: 1. [ Left great toe with Streptococcus agalactia and MSSA, secondary to uncontrolled diabetes, peripheral neuropathy, status post amputation. 2. [ Diabetes mellitus type 2 newly diagnosed]. 3. [ Peripheral neuropathy secondary to the above]. 4. [ Obesity, BMI 38]. 5. [ Acute postop blood loss anemia as expected post surgery]. Plan: Continue on current medication regime ,monitoring and symptomatic treatment. Antibiotics and wound care as per infectious disease. As mentioned above scheduled for PICC line tomorrow. Januvia 50 mg daily added to med regime for tighter blood sugar control. Close monitoring of Accu-Cheks. Close monitoring of hemoglobin with CBC in a.m. Discharge planning in progress for tomorrow. The impression and plan of care has been dictated as directed. : I performed a H&P examination of this patient and discussed the same with the dictator. I agree with the dictator's note. Any additional findings/opinions/ etc. will be noted.
[2017-04-27] MEDS: LINAGLIPTIN 5 MG TABLET PO SCH (20:35)
[2017-04-27 21:30] LABS: Glucose,Whole Blood 234 mg/dL (75-99)
[2017-04-27] MEDS: ONDANSETRON 4 MG/2 ML VIAL IVP PRN (23:34)
[2017-04-28] MEDS: CLINDAMYCIN 900 MG in DEXTROSE 5% IN WATER 50 ML IVPB SCH ×6 (00:23→17:46)
--- NOTE | 2017-04-28 07:04 | PN ---
DATE OF SERVICE: 04/27/2017 Reason for followup is left big toe wet gangrene. INTERVAL HISTORY: The patient is afebrile. He is currently breathing comfortably. Denies any significant chest pain or shortness of breath or cough. No abdominal pain or any worsening of pain in the left foot area. On examination, blood pressure is 123/70 with a pulse of 98, temperature 97.4. He is 96% on room air. General description is a middle aged male lying in bed in no distress. RESPIRATORY SYSTEM: Unlabored breathing. Clear to auscultation anteriorly. HEART: S1 and S2 regular rate and rhythm. ABDOMEN: Soft, no tenderness. Left big toe ( ) with some swelling, but no redness. No drainage. LABS: BUN of 10 with a creatinine 0.54. DIAGNOSTIC IMPRESSION AND PLAN: Patient with left big toe wet gangrene with culture positive for group B strep and MSSA. Blood culture has been negative. Patient is status post amputation. In view of the extensive infection, recommend getting a PICC line and IV cefazolin for at least 2 to 3 weeks depending upon his clinical response. The plan of care discussed with the surgeon. Continue supportive care. KINSEY
[2017-04-28 07:14] LABS: Glucose,Whole Blood 224 mg/dL (75-99)
[2017-04-28] MEDS: ATORVASTATIN 40 MG TAB PO SCH (08:14)
[2017-04-28] MEDS: ENOXAPARIN 40 MG/0.4 ML SYRINGE SQ SCH (08:14)
[2017-04-28] MEDS: LISINOPRIL 2.5 MG TAB PO SCH (08:14)
[2017-04-28] MEDS: ceFAZolin 2 GM in SODIUM CHLORIDE 0.9% 100 ML IVPB SCH ×3 (08:14→23:16)
[2017-04-28] MEDS: ASPIRIN 81 MG CHEW PO SCH (08:14)
[2017-04-28] MEDS: INSULIN LISPRO (humaLOG) 300 UNIT/3 ML VIAL SQ SCH ×5 (08:14→20:53)
[2017-04-28] MEDS: metFORMIN 500 MG TAB PO SCH ×2 (08:14→17:47)
[2017-04-28] MEDS: LINAGLIPTIN 5 MG TABLET PO SCH (08:14)
[2017-04-28 08:15] LABS: Basophils % (A) 0 %; CH 28.3; CHCM 32.5; Eosinophils # (A) 0.2 k/uL (0-0.7); Eosinophils % (A) 3 %; HCT 30.7 % (39.0-53.0); HDW 3.17; HGB 10.3 gm/dL (13.0-17.5); Hypochromasia Slight; Luc # (Auto) 0.25; Luc % (Auto) 3; Lymphocytes # (A) 1.6 k/uL (1.0-4.8); Lymphocytes % (A) 20 %; MCH 29.3 pg (25.0-35.0); MCHC 33.4 g/dL (31.0-37.0); MCV 87.5 fL (80.0-100.0); Mean Platelet Volume 6.5; Monocytes # (A) 0.5 k/uL (0-1.0); Monocytes % (A) 6 %; Neutrophils # (A) 5.2 k/uL (1.3-7.7); Neutrophils % (A) 67 %; RBC 3.51 m/uL (4.30-5.90); RDW 12.9 % (11.5-15.5); WBC 7.7 k/uL (3.8-10.6); WBC (Perox) 8.34
[2017-04-28 08:36] LABS: Anion Gap 9 mmol/L; Blood Urea Nitrogen 11 mg/dL (9-20); Calcium 8.1 mg/dL (8.4-10.2); Carbon Dioxide 25 mmol/L (22-30); Chloride 104 mmol/L (98-107); Glucose 214 mg/dL (74-99); Non-African American GFR(MDRD) >60 (>60 ml/min/1.73 sqM); Potassium 4.1 mmol/L (3.5-5.1); Sodium 138 mmol/L (137-145)
[2017-04-28] MEDS: SODIUM CHLORIDE 0.9% 1,000 ML IV SCH ×3 (10:28→23:16)
[2017-04-28 12:10] LABS: Glucose,Whole Blood 248 mg/dL (75-99)
[2017-04-28] MEDS: LACTATED RINGERS 1,000 ML IV SCH (13:30)
--- NOTE | 2017-04-28 14:03 | CDI ---
In responding to this query, please exercise your independent professional judgment. The [facility] Coding Staff and Clinical Documentation Specialists appreciate your assistance in clarifying documentation, maintaining compliance with coding guidelines, accurately documenting patients condition and capturing severity of illness. The fact that a question is asked does not imply that any particular answer is desired or expected. Communication forms are a method of clarifying documentation and are not made part of the Legal Health Record. Thank you in advance for your clarification. Last Revision, January 2017 Farrukh Flores [address] [facility] [address] Documentation Clarification Form Date: 04/28/2017 1:42:00 PM From: Viviane Gallardo RN, CCDS Admit Date: 04/24/2017 1:14:00 PM Patient Name: Jean Salinas Visit Number: [id number] Discharge Date: Dr. Mahesh Gordon/Cherelle White PATIENT EXPERIENCE COORDINATOR-C Sepsis is documented in the H/P and ID consult. History/Risk Factors: New dx Diabetes Mellitus type 2 Clinical Indicators: left great toe with Streptococcus agalactia and MSSA, WBC/Left Shift: 10.7 Lactic acid: 1.4 Blood cultures: Negative to date Vitals signs on admission: 126/74 799 75 3050.8, 125/70 103 101.0 Other Clinical Indicators: Foot x-ray marked soft tissue swelling as well as soft tissue gas within the great toe. Finding suggest severe infection with gas- forming organism Treatment: IV Cefazolin IV Clindamycin Amputation left great toe Monitor Labs Blood sugar monitoring ACHS with Insulin coverage per orders IV Fluids ID Consult: 04/24/17: Patient with sepsis in a patient who has fever of 101 degrees and did have tachycardia with slight elevated white count. Diabetic foot infection in a patient with elevated blood sugar. In your professional opinion, please clarify if these findings signify one of the following conditions, whether the condition is POA, and cause, if known: Sepsis, ruled out SIRS, without underlying infectious process Sepsis Severe Sepsis Septic Shock Unable to determine Other, please specify Present on Admission: Yes No * Identify the (suspected) organism * Link or clarify if there is associated (due to/with): - Organ failure - Shock SIRS Criteria: 2 or more of the following may indicate SIRS Temperature < 96.8F(36C) or > 101.0F (38C) Heart Rate > 90 bpm Respiratory Rate > 20 breaths/min or PaCO2 < 32 mmHg White Blood Cell Count > 12,000 or < 4,000 cells/mm3 or > 10% bands Lactate >2.0 mmol/L (>4.0 is equivalent to septic shock) Please document in your progress notes and discharge summary in order to capture severity of illness and risk of mortality. Include clinical findings that support your diagnosis. FYI: Press F11 to launch patient chart. Place X here if this finding has no clinical significance, is not applicable or if you are not able to provide any additional documentation. KINSEY
[2017-04-28] MEDS: COLLAGENASE 250 UNIT/GM OINTMENT 30 GM TUBE TOPICAL SCH (16:17)
--- NOTE | 2017-04-28 16:38 | P.PN ---
Subjective Date of service 04/28/2017. Progress note being dictated for Dr. Gordon. Interval history: This is a 36-year-old gentleman admitted with left great toe, Streptococcus agalactia and MSSA , status post amputation, uncontrolled diabetes -newly diagnosed, and multiple other medical issues. Wound care with Santyl dressings, ceftazolin, clindamycin as per infectious disease. PICC line placement pending, hold lovenox. Remains nonweightbearing. Yesterday Blood sugars uncontrolled, januvia-(substituted to Trajenta by pharmacy), added to med regime, mildly improving. Afebrile. Pain controlled. Objective - Vital Signs Vital signs: Vital Signs Temp 98.2 F 04/28/17 15:00 Pulse 86 04/28/17 15:00 Resp 16 04/28/17 15:00 BP 124/73 04/28/17 15:00 Pulse Ox 97 04/28/17 15:00 Intake & Output 04/27/17 04/28/17 04/28/17 18:59 06:59 18:59 Intake Total 1000 Balance 1000 Intake: Intake, IV Titration 1000 Amount Clindamycin 900 mg In 100 Dextrose 5% in Water 50 ml @ 100 mls/hr IVPB Q8HR [facility] Rx#:[id number] Sodium Chloride 0.9% 1, 800 000 ml @ 100 mls/hr IV . Q10H [facility] Rx#:[id number] ceFAZolin 2 gm In Sodium 100 Chloride 0.9% 100 ml @ 100 mls/hr IVPB Q8HR [facility] Rx#:[id number] Other: # Voids 3 1 3 # Bowel Movements 1 - Exam PHYSICAL EXAM: VITAL SIGNS: [As above] GENERAL: [Sitting up in bed, no acute distress] HEENT: [Pupils equal conjunctiva normal. Oral mucosa moist NECK: [Supple, no JVD] RESPIRATORY EFFORT:[ Normal] LUNGS: [Clear to auscultation, no wheezes rhonchi or crackles] CARDIOVASCULAR[ regular S1 and S2, no murmurs rubs or gallops,] GI: [Abdomen soft, nontender, positive bowel sounds.] PSYCH: [Alert and oriented -3, mood and affect normal.] SKIN: [Left foot dressing clean dry and intact] NEURO: No focal deficits Microbiology 04/24/17 12:01 Blood Blood Culture - Preliminary No Growth after 96 hours 04/24/17 12:10 Toe - Right First Gram Stain - Final 04/24/17 12:10 Toe - Right First Wound Culture - Final Staphylococcus aureus Strep agalactiae - (group b) 04/24/17 12:35 Urine,Voided Urine Culture - Final - Labs CBC & Chem 7: 04/28/17 07:50 04/28/17 07:50 Labs: Abnormal Lab Results - Last 24 Hours (Table) 04/27/17 04/27/17 04/28/17 Range/Units 17:25 21:25 06:38 RBC (4.30-5.90) m/uL Hgb (13.0-17.5) gm/dL Hct (39.0-53.0) % Creatinine (0.66-1.25) mg/dL Glucose (74-99) mg/dL POC Glucose (mg/dL) 263 H 234 H 224 H (75-99) mg/dL Calcium (8.4-10.2) mg/dL 04/28/17 04/28/17 04/28/17 Range/Units 07:50 07:50 12:04 RBC 3.51 L (4.30-5.90) m/uL Hgb 10.3 L (13.0-17.5) gm/dL Hct 30.7 L (39.0-53.0) % Creatinine 0.58 L (0.66-1.25) mg/dL Glucose 214 H (74-99) mg/dL POC Glucose (mg/dL) 248 H (75-99) mg/dL Calcium 8.1 L (8.4-10.2) mg/dL Microbiology - Last 24 Hours (Table) 04/24/17 12:01 Blood Culture - Preliminary Blood No Growth after 96 hours Assessment and Plan Plan: 1. [Left great toe with Streptococcus agalactia-Group B and MSSA, secondary to uncontrolled diabetes, peripheral neuropathy, status post amputation. 2. [ Diabetes mellitus type 2 newly diagnosed]. 3. [ Peripheral neuropathy secondary to the above]. 4. [ Obesity, BMI 38]. 5. [ Acute postop blood loss anemia as expected post surgery]. Plan: Continue on current medication regime ,monitoring and symptomatic treatment. Antibiotics and wound care as per infectious disease. As mentioned above scheduled for PICC line tomorrow-hold Lovenox. Pre-meal insulin added to med regime in addition to sliding scale .Close monitoring of Accu-Cheks. Close monitoring of hemoglobin with CBC in a.m. Discharge planning in progress for tomorrow. The impression and plan of care has been dictated as directed. : I performed a H&P examination of this patient and discussed the same with the dictator. I agree with the dictator's note. Any additional findings/opinions/ etc. will be noted.
[2017-04-28 17:16] LABS: Glucose,Whole Blood 236 mg/dL (75-99)
--- NOTE | 2017-04-28 19:26 | PN ---
DATE OF SERVICE: 04/28/2017 REASON FOR CONSULTATION: Left diabetic foot infection with left big toe wet gangrene. INTERVAL HISTORY: The patient is afebrile. Pain to the left foot is currently controlled. The patient denies significant chest pain, shortness of breath or cough. No abdominal pain or any diarrhea. On examination, blood pressure is 117/68 with a pulse of 90, temperature 98. He is 96% on room air. General description is a middle-aged male lying in bed in no distress. RESPIRATORY SYSTEM: Unlabored breathing. Clear to auscultation anteriorly. HEART: S1, S2. Regular rate and rhythm. ABDOMEN: Soft. No tenderness. LEFT FOOT: Currently dressed up. No obvious drainage on the dressing. LABS: Hemoglobin is 10.3 with a white count of 7.7. BUN of 11 with creatinine of 0.58. DIAGNOSTIC IMPRESSION AND PLAN: Patient with big toe wet gangrene with likely osteomyelitis, status post amputation of the big toe; culture with an MSSA and group B streptococcus. Currently on cefazolin and clindamycin. We did recommend cefazolin 2 grams q.8 in the outpatient setting; however, apparently the patient does not have insurance coverage for getting those antibiotics at home, and he will not be able to come to the infusion clinic 3 times a day. Antibiotics at the time of discharge will be Rocephin 2 grams daily for at least 2 weeks. Prescription has been written for the patient. Local wound care to continue per Surgery and outpatient followup. [facility]
[2017-04-28 20:33] LABS: Glucose,Whole Blood 194 mg/dL (75-99)
[2017-04-28 22:54] VITALS: TEMP 98.8
[2017-04-29] MEDS: ONDANSETRON 4 MG/2 ML VIAL IVP PRN (00:04)
[2017-04-29] MEDS: CLINDAMYCIN 900 MG in DEXTROSE 5% IN WATER 50 ML IVPB SCH ×4 (00:27→08:10)
[2017-04-29 07:05] LABS: Glucose,Whole Blood 219 mg/dL (75-99)
[2017-04-29 07:33] VITALS: BP 122/75; PULSE 87; RESP 18
[2017-04-29] MEDS: metFORMIN 500 MG TAB PO SCH (08:12)
[2017-04-29] MEDS: ASPIRIN 81 MG CHEW PO SCH (08:13)
[2017-04-29] MEDS: COLLAGENASE 250 UNIT/GM OINTMENT 30 GM TUBE TOPICAL SCH (08:13)
[2017-04-29] MEDS: LINAGLIPTIN 5 MG TABLET PO SCH (08:13)
[2017-04-29] MEDS: ATORVASTATIN 40 MG TAB PO SCH (08:13)
[2017-04-29] MEDS: LISINOPRIL 2.5 MG TAB PO SCH (08:13)
[2017-04-29] MEDS: INSULIN LISPRO (humaLOG) 300 UNIT/3 ML VIAL SQ SCH ×4 (08:15→13:06)
[2017-04-29 08:41] LABS: Basophils % (A) 0 %; CH 28.3; CHCM 32.9; Eosinophils # (A) 0.2 k/uL (0-0.7); Eosinophils % (A) 3 %; HCT 30.7 % (39.0-53.0); HDW 3.23; HGB 10.3 gm/dL (13.0-17.5); Luc # (Auto) 0.19; Luc % (Auto) 3; Lymphocytes # (A) 1.6 k/uL (1.0-4.8); Lymphocytes % (A) 22 %; MCH 28.9 pg (25.0-35.0); MCHC 33.5 g/dL (31.0-37.0); MCV 86.3 fL (80.0-100.0); Mean Platelet Volume 6.5; Monocytes # (A) 0.4 k/uL (0-1.0); Monocytes % (A) 6 %; Neutrophils # (A) 4.6 k/uL (1.3-7.7); Neutrophils % (A) 66 %; RBC 3.56 m/uL (4.30-5.90); RDW 12.9 % (11.5-15.5); WBC (Perox) 7.25
[2017-04-29 08:42] LABS: Anion Gap 9 mmol/L; Blood Urea Nitrogen 8 mg/dL (9-20); Calcium 8.1 mg/dL (8.4-10.2); Carbon Dioxide 26 mmol/L (22-30); Chloride 102 mmol/L (98-107); Glucose 204 mg/dL (74-99); Non-African American GFR(MDRD) >60 (>60 ml/min/1.73 sqM); Potassium 4.2 mmol/L (3.5-5.1); Sodium 137 mmol/L (137-145)
--- NOTE | 2017-04-29 08:51 | IR ---
PICC LINE PLACEMENT: HISTORY: Infection requiring long-term antibiotic therapy PROCEDURE: Ultrasound and fluoroscopic guidance of PICC line placement. COMPLICATIONS: None ANESTHESIA: 1. 1% Lidocaine locally. FINDINGS/TECHNIQUE: The procedure was explained to the patient. The risks, complications, benefits and alternatives were discussed and any questions were answered. Informed consent was obtained. The patient was placed supine on the fluoroscopic table and prepped and draped in the usual sterile fash ion. Utilizing a 21 gauge needle and sonographic and fluoroscopic guidance, access in the left basi lic vein was achieved and there is placement of a 0.018 guidewire. The vein is patent. A 4-F sheath was placed over the guidewire. The guidewire and dilator were removed and a 4-F. PICC line was plac ed through the sheath with the tip at the level of the SVC. The sheath was removed, the catheter was flushed and sutured into position. The patient was stable throughout the procedure and remained sta ble upon discharge from the Department of Radiology. The vein puncture was patent under ultrasound. A anderson scale image was obtained to document patency of the vein punctured. All elements of the maximal barrier technique were utilized. FLUOROSCOPY TIME: 0.4 minute IMPRESSION: Successful PICC line placement under ultrasound and fluoroscopic guidance.
[2017-04-29] MEDS: ceFAZolin 2 GM in SODIUM CHLORIDE 0.9% 100 ML IVPB SCH (09:24)
[2017-04-29] MEDS ORDERED: cefTRIAXone 2,000 MG in SODIUM CHLORIDE 0.9% 100 ML IVPB STA (10:50)
--- NOTE | 2017-04-29 12:08 | P.DS ---
Providers Date of admission: 04/24/17 13:14 Expected date of discharge: 04/29/17 Attending physician: Polo Gordon Consults: 04/24/17 13:16 Consult Physician Urgent Consulting Provider: Ely Jules Consult Reason/Comments: left great toe infection Do you want consulting provider notified?: Yes 04/24/17 15:47 Consult Physician Urgent Consulting Provider: Abdi Haro Consult Reason/Comments: left great toe infection, foot amputation Do you want consulting provider notified?: Yes Primary care physician: [facility] Course: Final Diagnoses: 1. [Sepsis secondary to Left great toe with Streptococcus agalactia-Group B and MSSA, secondary to uncontrolled diabetes, peripheral neuropathy, status post amputation. 2. [ Diabetes mellitus type 2 newly diagnosed]. 3. [ Peripheral neuropathy secondary to the above]. 4. [ Obesity, BMI 38]. 5. [ Acute postop blood loss anemia as expected post surgery]. Hospital course:This is a 36-year-old gentleman admitted with left great toe, Streptococcus agalactia and MSSA , status post amputation, uncontrolled diabetes -newly diagnosed, and multiple other medical issues. Wound care with Santyl dressings, ceftazolin, clindamycin as per infectious disease. PICC line placed. Januvia and metformin added to med regime. Significant clinical improvement. Patient has been cleared for discharge by both vascular and infectious disease. She is being discharged home in a stable condition with guarded prognosis. The impression and plan of care has been dictated as directed as a scribe. : I performed a H&P examination of this patient and discussed the same with the dictator. I agree with the dictator's note. Any additional findings/opinions/ etc. will be noted. Patient Condition at Discharge: Stable Plan - Discharge Summary New Discharge Prescriptions: New cefTRIAXone [Rocephin] 2,000 mg IVPB Q24HR #14 vial Aspirin 81 mg PO DAILY #0 Atorvastatin [Lipitor] 40 mg PO DAILY #30 tab Collagenase [Santyl] 1 applic TOPICAL DAILY dose HYDROcodone/APAP 5-325MG [Wall 5-325] 1 each PO Q6H PRN #20 tab PRN Reason: Moderate Pain Lisinopril [Zestril] 2.5 mg PO DAILY #30 tab metFORMIN HCL [Glucophage] 1,000 mg PO AC-BID #120 tab sitaGLIPtin PHOSPHATE [Januvia] 50 mg PO DAILY #30 tab No Action Acetaminophen Tab [Tylenol] 1,000 mg PO Q6HR PRN PRN Reason: Pain Discharge Medication List Acetaminophen Tab [Tylenol] 1,000 mg PO Q6HR PRN 04/24/17 [History] Aspirin 81 mg PO DAILY #0 04/29/17 [Rx] Atorvastatin [Lipitor] 40 mg PO DAILY #30 tab 04/29/17 [Rx] Collagenase [Santyl] 1 applic TOPICAL DAILY dose 04/29/17 [Rx] HYDROcodone/APAP 5-325MG [Wall 5-325] 1 each PO Q6H PRN #20 tab 04/29/17 [Rx] Lisinopril [Zestril] 2.5 mg PO DAILY #30 tab 04/29/17 [Rx] cefTRIAXone [Rocephin] 2,000 mg IVPB Q24HR #14 vial 04/29/17 [Rx] metFORMIN HCL [Glucophage] 1,000 mg PO AC-BID #120 tab 04/29/17 [Rx] sitaGLIPtin PHOSPHATE [Januvia] 50 mg PO DAILY #30 tab 04/29/17 [Rx] Follow up Appointment(s)/Referral[facility] - 1 Week (With Dr Haro) Ely Julse MD [STAFF PHYSICIAN] - 1 Week Shan Altamirano MD [Primary Care Provider] - 3 Days Patient Instructions/Handouts: Foot Care for People with Diabetes (DC), Type 2 Diabetes in Adults (GEN), Toe Amputation (DC) Activity/Diet/Wound Care/Special Instructions: No smoking, cessation information provided. Diabetic diet. Outpatient diabetic education resources given. Left foot non-weight bearing. [facility] to deliver the glucometer to pt's home #[phone] PIC line information given to pt. Pt is to go to [facility] on 3rd floor for iv Rocephin 2 gm daily for 2 weeks. Pt is to begin on (04/30/17) at 12:45.
[2017-04-29 12:33] LABS: Glucose,Whole Blood 236 mg/dL (75-99)
[2017-04-29] MEDS: SODIUM CHLORIDE 0.9% 1,000 ML IV SCH (13:06)
[2017-04-29] MEDS: LACTATED RINGERS 1,000 ML IV SCH (13:06)
--- NOTE | 2017-04-29 16:34 | PN ---
DATE OF SERVICE: 04/29/2017 REASON FOR FOLLOWUP: Left big toe wet gangrene and possible osteomyelitis. INTERVAL HISTORY: The patient is afebrile. He is feeling better, breathing comfortably. Denies significant chest pain or shortness of breath or cough. No abdominal pain or any pain in his left foot area. On examination, blood pressure is 122/75 with a pulse of 87, temperature 98.8. He is 95% on room air. General description is a middle-aged male lying in bed in no distress. RESPIRATORY SYSTEM: Unlabored breathing. Clear to auscultation anteriorly. HEART: S1, S2. Regular rate and rhythm. ABDOMEN: Soft. No tenderness. Left foot dressed up. No obvious drainage on the dressing. LABS: Hemoglobin 10.3, white count 7. BUN 8, creatinine 0.57. DIAGNOSTIC IMPRESSION AND PLAN: Patient with left big toe diabetic foot infection with wet gangrene and possible osteomyelitis, status post amputation. Patient was not bacteremic and he is unable to get IV cefazolin at home; hence antibiotic was switched over the Rocephin 2 grams daily, for which the patient will come to the outpatient infusion clinic for 2 weeks with outpatient followup. KINSEY
== END 2017-04-29 15:10 | disposition home or self-care (01) | DRG 854 ==
LOC: EC 11:02 → 4MS4W 13:14
PROVIDERS: ADMIT Hospitalist; ATTEND Hospitalist
PROC: 0Y6Q0Z0 Detachment at Left 1st Toe, Complete, Open Approach (ICD-10-PCS; principal; 2017-04-25 12:00)
PROC: B518ZZA Fluoroscopy of Superior Vena Cava, Guidance (ICD-10-PCS; 2017-04-29)
PROC: 02HV33Z Insertion of Infusion Device into Superior Vena Cava, Percutaneous Approach (ICD-10-PCS; 2017-04-29 08:28)
PROC: B548ZZA Ultrasonography of Superior Vena Cava, Guidance (ICD-10-PCS; 2017-04-29 08:28)
DX: A40.1 Sepsis due to streptococcus, group B (principal); E11.52 Type 2 diabetes mellitus with diabetic peripheral angiopathy with gangrene; E11.42 Type 2 diabetes mellitus with diabetic polyneuropathy; E11.65 Type 2 diabetes mellitus with hyperglycemia; D62 Acute posthemorrhagic anemia; M86.8X7 Other osteomyelitis, ankle and foot; E11.69 Type 2 diabetes mellitus with other specified complication; E66.9 Obesity, unspecified; Z68.38 Body mass index [BMI] 38.0-38.9, adult; Z83.3 Family history of diabetes mellitus; L03.032 Cellulitis of left toe; Z87.891 Personal history of nicotine dependence
CPT/HCPCS: 36415; 36569; 76937; 77001; 80048; 80053; 80061; 80202; 81001; 83036; 83605; 85025; 85610; 85730; 87040; 87070; 87077; 87086; 87186; 87205; 87324; 88305; 88311; 96365; 96375; 99284

== ENCOUNTER → 2019-02-14 | Outpatient (CLI) | payer BC ==
--- NOTE | 2019-02-14 12:26 | FL ---
EXAMINATION TYPE: FL barium swallow w video DATE OF EXAM: 02/14/2019 MODIFIED SWALLOW / DEGLUTITION STUDY CLINICAL HISTORY: Dysphagia. Choking when eating. Possible Graves' disease. TECHNIQUE: Deglutition study is performed utilizing thin liquid barium, honey and nectar thick liqui d barium, barium thick applesauce, and barium coated cracker. A total of 42 seconds of fluoroscopic t raeann was utilized during procedure. Zero spot images are saved. COMPARISON: None. FINDINGS: The oral and pharyngeal phases show satisfactory initiation and propagation with all modali ties tested. Normal mastication is seen with solid modalities tested. There is no evidence of penet ration or aspiration with any modality tested. No significant pharyngeal residue was appreciated. IMPRESSION: No penetration or aspiration observed. Please refer to speech therapist notes for furthe r details if necessary.
== END | disposition home or self-care (01) ==
LOC: RADFLMAIN 11:30
PROVIDERS: ATTEND Psychiatry & Neurology Neurology
DX: R13.10 Dysphagia, unspecified (principal)
CPT/HCPCS: 74230